=== PATIENT | female | born 1930 | race Caucasian/White ===

== ENCOUNTER 2016-10-11 11:33 | Emergency (ER) | payer MEDICARE ==
[~2016-10-11] VITALS: Ht 167.6 cm; Wt 73.4 kg
[~2016-10-11 11:33] MED LIST: ASPI81 PO; ATOR20TA42 PO; CHOL100010 PO; FISHCAP PO; PREV10CA PO; TAB-TAB PO; WARF-20 PO; WARF5TAB PO
[2016-10-11 12:05] VITALS: BP 122/75; PULSE 92; RESP 16; TEMP 98.5; O2SAT 97
[2016-10-11] MEDS ORDERED: SODIUM CHLORIDE 0.9% FLUSH 5 ML FLUSH IVF PRN (14:00)
--- NOTE | 2016-10-11 14:04 | PD ---
HPI Chief Complaint: Edema Time Seen by Provider: 13:53 Travel History International Travel<30 days: No Contact w/Intl Traveler<30days: No Traveled to known affect area: No History of Present Illness HPI 85-year-old female with history of DVT on warfarin, here for evaluation of pain , swelling, and redness to right distal leg. Symptoms started yesterday. The patient denies trauma. Pain is moderate, constant, worse with movement and palpation. No fevers or chills. No chest pain or dyspnea. PFSH Past Medical History Hx Anticoagulant Therapy: Yes (coumadin) Anxiety: Yes Depression: No Cancer: No Cardiovascular Problems: Yes High Cholesterol: Yes Chest Pain: Yes Congestive Heart Failure: No Cerebrovascular Accident: Yes (cva,) Deep Vein Thrombosis: Yes (HX OF LEFT LEG) Endocrine: No Hypertension: Yes Neurologic: Yes (BRAIN ANEURYSM) Psychiatric: No Respiratory: No Immunizations Current: Yes Renal Failure: Yes (STATES HX OF KIDNEY DISEASE) Thyroid Disease: No ?: Not Menopausal: Yes Past Surgical History Body Medical Devices: CEREBRAL SHUNT Cardiac Surgery: Yes (VALVE REPAIR) Neurologic Surgery: Yes (ANEURYSM REPAIR IN THE BRAIN) Tonsillectomy: Yes Social History Alcohol Use: No Tobacco Use: No Substance Use: No Allergies-Medications (Allergen,Severity, Reaction): Coded Allergies: Bee Sting (Verified Allergy, Severe, Swelling, 10/11/16) Reported Meds & Prescriptions Reported Meds & Active Scripts Active Keflex (Cephalexin) 500 Mg Cap 500 Mg PO Q6H 10 Days Bactrim DS (Sulfamethoxazole-Trimethoprim) 800-160 Mg Tab 1 Tab PO BID Reported Multiple Vitamin 1 Tab 1 Tab PO DAILY Prevagen (Apoaequorin) 10 Mg Cap Fish Oil + D3 (Fish Oil-Cholecalciferol) 1,200-1,000 Mg-Unit Cap 1 Cap PO DAILY Aspirin Children's (Aspirin) 81 Mg Chew 81 Mg CHEW DAILY Warfarin 5 Mg Tab 5 Mg PO DAILY Review of Systems Except as stated in HPI: all other systems reviewed are Neg Physical Exam Narrative GENERAL: Well-developed, well-nourished, comfortable, no acute distress. SKIN: Warm and dry. Right distal/anterior 1/4-1/3 leg with area of warmth and erythema, no red streaks, moderate tenderness, no crepitus, no induration, no blisters. HEAD: Atraumatic. Normocephalic. EYES: Pupils equal and round. No scleral icterus. No injection or drainage. ENT: No nasal bleeding or discharge. Mucous membranes pink and moist. NECK: Trachea midline. No JVD. CARDIOVASCULAR: Regular rate and rhythm. Bilateral dorsalis pedis pulses are brisk and equal. RESPIRATORY: No accessory muscle use. Clear to auscultation. Breath sounds equal bilaterally. MUSCULOSKELETAL: Skin exam as above. Moderate edema to right distal leg. No crepitus. Bilateral calves are supple, nontender. NEUROLOGICAL: Awake and alert. No obvious cranial nerve deficits. Motor grossly within normal limits. Normal speech. PSYCHIATRIC: Appropriate mood and affect; insight and judgment normal. Data Data Last Documented VS Vital Signs Date Time Temp Pulse Resp B/P Pulse Ox O2 Delivery O2 Flow Rate FiO2 10/11/16 14:47 98 Room Air 10/11/16 12:05 98.5 92 16 122/75 Orders Basic Metabolic Panel (Bmp) (10/11/16 14:00) Complete Blood Count With Diff (10/11/16 14:00) Prothrombin Time / Inr (Pt) (10/11/16 14:00) Act Partial Throm Time (Ptt) (10/11/16 14:00) Iv Access Insert/Monitor (10/11/16 14:00) Ecg Monitoring (10/11/16 14:00) Oximetry (10/11/16 14:00) Sodium Chloride 0.9% Flush (Ns Flush) (10/11/16 14:00) Blood Culture (10/11/16 14:00) Us Leg Venous Doppler (10/11/16 ) Tibia/Fibula (Ap/Lat) (10/11/16 ) Sulfamet-Trimeth Ds 800-160 Mg (Bactrim (10/11/16 15:45) Cephalexin (Keflex) (10/11/16 15:45) Labs Laboratory Tests Test 10/11/16 14:15 White Blood Count 8.6 TH/MM3 Red Blood Count 4.10 MIL/MM3 Hemoglobin 11.2 GM/DL Hematocrit 34.9 % Mean Corpuscular Volume 85.0 FL Mean Corpuscular Hemoglobin 27.3 PG Mean Corpuscular Hemoglobin 32.1 % Concent Red Cell Distribution Width 16.1 % Platelet Count 203 TH/MM3 Mean Platelet Volume 7.9 FL Neutrophils (%) (Auto) 80.9 % Lymphocytes (%) (Auto) 14.2 % Monocytes (%) (Auto) 3.4 % Eosinophils (%) (Auto) 1.2 % Basophils (%) (Auto) 0.3 % Neutrophils # (Auto) 7.0 TH/MM3 Lymphocytes # (Auto) 1.2 TH/MM3 Monocytes # (Auto) 0.3 TH/MM3 Eosinophils # (Auto) 0.1 TH/MM3 Basophils # (Auto) 0.0 TH/MM3 CBC Comment DIFF FINAL Differential Comment Prothrombin Time 16.9 SEC Prothromb Time International 1.5 RATIO Ratio Activated Partial 31.3 SEC Thromboplast Time Sodium Level 142 MEQ/L Potassium Level 4.4 MEQ/L Chloride Level 108 MEQ/L Carbon Dioxide Level 25.7 MEQ/L Anion Gap 8 MEQ/L Blood Urea Nitrogen 16 MG/DL Creatinine 1.00 MG/DL Estimat Glomerular Filtration 53 ML/MIN Rate Random Glucose 90 MG/DL Calcium Level 8.4 MG/DL [facility] Medical Decision Making Medical Screen Exam Complete: Yes Emergency Medical Condition: Yes Differential Diagnosis Cellulitis, DVT, necrotizing fasciitis unlikely Narrative Course Vital signs show heart rate 92, blood pressure 122/75, pulse ox 97% on room air , oral temp of 98.5F. CBC shows WBC 8.6, hemoglobin 11.2, hematocrit 34.9, platelets 203, neutrophils 80.9%. BMP is unremarkable. INR is 1.5. Right tib-fib x-ray shows no evidence of fracture, no free air seen by me. Right lower extremity venous duplex is negative for DVT. Patient was made aware of all findings. She is resting comfortably. At this point I believe she is stable for discharge home with oral antibiotics. She is from [place] and has no local PMD. She will return to the emergency Department in 2 days for a wound check. A line was drawn over the superior border of area of erythema. Patient was informed on when to return to the emergency Department sooner. The patient was also instructed to double her dose of Coumadin for the next 2 days. She verbalizes understanding and agreement with plan. Diagnosis Primary Impression: Cellulitis of right leg Additional Impression: Subtherapeutic international normalized ratio (INR) Referrals: Primary Care Physician 2 days Additional Instructions: Return to the Emergency Department in 2 days for a wound check. Take antibiotics as prescribed. Return to the Emergency Department sooner for worsening symptoms or any other concerns as discussed. Scripts Cephalexin (Keflex)500 Mg [id number] Mg PO Q6H 10 Days Ref 0 Prov:John Nichols MD 10/11/16 Sulfamethoxazole-Trimethoprim (Bactrim DS)800-160 Mg Tab1 Tab PO BID #20 TAB Ref 0 Prov:John Nichols MD 10/11/16 Disposition: 01 DISCHARGE HOME Condition: Stable John Nichols MD Oct 11, 2016 14:04
[2016-10-11] MEDS ORDERED: ASPI81CH7 CHEW (14:09)
[2016-10-11] MEDS ORDERED: PREV10CA (14:09)
[2016-10-11] MEDS ORDERED: FISHCAP4 PO (14:09)
[2016-10-11] MEDS ORDERED: WARF-23 PO (14:09)
[2016-10-11] MEDS ORDERED: MULTTAB67 PO (14:09)
[2016-10-11 14:47] VITALS: O2SAT 98
[2016-10-11 14:51] LABS: BASOPHIL % 0.3 % (0.0-2.0); EOSINOPHIL # 0.1 TH/MM3 (0-0.4); EOSINOPHIL % 1.2 % (0.0-4.0); HEMATOCRIT 34.9 % (35.0-46.0); HEMO FLAGS DIFF FINAL; LYMPH % 14.2 % (9.0-44.0); LYMPHOCYTE # 1.2 TH/MM3 (1.0-4.8); MEAN CORPUSCULAR HEMOGLOBIN 27.3 PG (27.0-34.0); MEAN CORPUSCULAR HGB CONC 32.1 % (32.0-36.0); MONO % 3.4 % (0.0-8.0); NEUT % 80.9 % (16.0-70.0); PLATELET COUNT 203 TH/MM3 (150-450); RED CELL DISTRIBUTION WIDTH 16.1 % (11.6-17.2); WHITE BLOOD COUNT 8.6 TH/MM3 (4.0-11.0)
[2016-10-11 14:59] LABS: POTASSIUM 4.4 MEQ/L (3.5-5.1)
[2016-10-11 15:02] LABS: BICARBONATE 25.7 MEQ/L (21.0-32.0)
[2016-10-11 15:03] LABS: APTT (PATIENT) 31.3 SEC (24.3-30.1); INTERNATIONAL NORMALIZED RATIO 1.5 RATIO; PROTHROMBIN TIME - PATIENT 16.9 SEC (9.8-11.6)
--- NOTE | 2016-10-11 15:22 | RADHPO ---
EXAM DATE/TIME: 10/11/2016 14:40 [facility] COMPARISON: No previous studies available for comparison. INDICATIONS : Pain and swelling mid tibia. MEDICAL HISTORY : None. SURGICAL HISTORY : None. ENCOUNTER: Initial ACUITY: 3 days PAIN SCORE: 5/10 LOCATION: Right lateral FINDINGS: 2 views of the right tibia and fibula. Bone alignment within normal limits. No evidence of fracture. No focal bone erosion. CONCLUSION: No evidence of fracture. Nicholas Kumari MD on October 11, 2016 at 15:20 Board Certified Radiologist. This report was verified electronically.
--- NOTE | 2016-10-11 15:42 | RADHPO ---
EXAM DATE/TIME: 10/11/2016 15:06 [facility] COMPARISON: No previous studies available for comparison. INDICATIONS : Right leg swelling. MEDICAL HISTORY : Hypercholesterolemia. Hypertension. Deep vein thrombosis. CVA. Kidney disease. SURGICAL HISTORY : Aneurysm repair in the brain. ENCOUNTER: Initial ACUITY: 2 day PAIN SCORE: 4/10 LOCATION: Right leg. TECHNIQUE: Venous ultrasound of the leg was performed from the inguinal ligament to the proximal calf. Real-augustus e, color Doppler and spectral tracing, compression and augmentation techniques were used. FINDINGS: There is normal compressibility of the deep venous system from the inguinal region to the proximal ca lf. No echogenic clot is seen in the lumen of the common femoral, femoral, popliteal, and posterior tibial veins. There is a normal response of the venous system to proximal and distal augmentation an d respiration. CONCLUSION: Normal examination. Rahul Melendez MD on October 11, 2016 at 15:40 Board Certified Radiologist. This report was verified electronically.
[2016-10-11] MEDS ORDERED: BACT800T5 PO (15:45)
[2016-10-11] MEDS ORDERED: CEPH-460 PO ×2 (15:45→15:46)
[2016-10-11] MEDS ORDERED: CEPHALEXIN MONOHYDRATE 500 MG CAP PO ONE (15:45)
[2016-10-11] MEDS ORDERED: SULFAMETHOXAZOLE-TRIMETHOPRIM DS 800-160 MG TAB PO ONE (15:45)
== END 2016-10-11 16:42 | disposition home or self-care (01) ==
LOC: PHED 11:33
DX: L03.115 Cellulitis of right lower limb (principal); Z79.01 Long term (current) use of anticoagulants
CPT/HCPCS: 73590; 80048; 85025; 85610; 85730; 87040; 93971

== ENCOUNTER 2016-10-13 09:02 | Emergency (ER) | payer MEDICARE ==
[~2016-10-13] VITALS: Ht 167.6 cm; Wt 72.3 kg
[~2016-10-13 09:02] MED LIST changes: -ASPI81 PO; +ASPI81CH7 CHEW; -ATOR20TA42 PO; +BACT800T5 PO; +CEPH-460 PO; -CHOL100010 PO; -FISHCAP PO; +FISHCAP4 PO; +MULTTAB67 PO; +PREV10CA; -PREV10CA PO; -TAB-TAB PO; -WARF-20 PO; +WARF-23 PO; -WARF5TAB PO
[2016-10-13 09:13] VITALS: BP 106/77; PULSE 94; RESP 18; TEMP 98.2; O2SAT 97
--- NOTE | 2016-10-13 09:26 | PD ---
HPI Chief Complaint: Wound/Suture/Staple Re-Check Time Seen by Provider: 09:19 Travel History International Travel<30 days: No Contact w/Intl Traveler<30days: No Traveled to known affect area: No History of Present Illness HPI This 85-year-old female presents for a reevaluation of cellulitis of her leg. She was here on the and was started on Keflex and Bactrim. The area of cellulitis was marked with pen. He reports that the area of redness has subsided and she is feeling well. She is not aware of any fever. She has previously had cellulitis and was hospitalized. PFSH Past Medical History Hx Anticoagulant Therapy: Yes (coumadin) Anxiety: Yes Depression: No Cancer: No Cardiovascular Problems: Yes High Cholesterol: Yes Chest Pain: Yes Congestive Heart Failure: No Cerebrovascular Accident: Yes (cva,) Deep Vein Thrombosis: Yes (HX OF LEFT LEG) Endocrine: No Gastrointestinal Disorders: No Hypertension: Yes Neurologic: Yes (BRAIN ANEURYSM) Psychiatric: No Respiratory: No Immunizations Current: Yes Renal Failure: Yes (STATES HX OF KIDNEY DISEASE) Thyroid Disease: No Menopausal: Yes Past Surgical History Body Medical Devices: CEREBRAL SHUNT Cardiac Surgery: Yes (VALVE REPAIR) Neurologic Surgery: Yes (ANEURYSM REPAIR IN THE BRAIN/SHUNT ) Tonsillectomy: Yes Social History Alcohol Use: No Tobacco Use: No Substance Use: No Allergies-Medications (Allergen,Severity, Reaction): Coded Allergies: Bee Sting (Verified Allergy, Severe, Swelling, 10/11/16) Reported Meds & Prescriptions Reported Meds & Active Scripts Active Keflex (Cephalexin) 500 Mg Cap 500 Mg PO Q6H 10 Days Bactrim DS (Sulfamethoxazole-Trimethoprim) 800-160 Mg Tab 1 Tab PO BID Reported Multiple Vitamin 1 Tab 1 Tab PO DAILY Prevagen (Apoaequorin) 10 Mg Cap Fish Oil + D3 (Fish Oil-Cholecalciferol) 1,200-1,000 Mg-Unit Cap 1 Cap PO DAILY Aspirin Children's (Aspirin) 81 Mg Chew 81 Mg CHEW DAILY Warfarin 5 Mg Tab 5 Mg PO DAILY Review of Systems General / Constitutional: No: Fever, Chills Cardiovascular: No: Chest Pain or Discomfort Respiratory: No: Cough, Shortness of Breath Gastrointestinal: No: Vomiting, Diarrhea Skin: Positive Rash Psychiatric: No: Anxiety Physical Exam Narrative Patient is here for recheck and the examination was confined to the right leg. The patient does not appear in distress. There is faint erythema on the medial aspect of the right leg which does not extend to the area that has been marked. Patient reports that the redness is much better than before and the nurse corroborates this history seen the patient on the previous visit. There is no lymphangitis Data Data Last Documented VS Vital Signs Date Time Temp Pulse Resp B/P Pulse Ox O2 Delivery O2 Flow Rate FiO2 10/13/16 09:13 98.2 94 18 106/77 97 Room Air MDM Medical Decision Making Medical Screen Exam Complete: Yes Emergency Medical Condition: Yes Medical Record Reviewed: Yes Differential Diagnosis Differential includes cellulitis, cellulitis responding to treatment Narrative Course Patient is responding to treatment well. She'll be released with recommendations to return if the cellulitis she get worse Diagnosis Primary Impression: cellulitis right leg improving Disposition: 01 DISCHARGE HOME Condition: Stable Ivan Guallpa MD Oct 13, 2016 09:26
== END 2016-10-13 09:39 | disposition home or self-care (01) ==
LOC: PHED 09:02
DX: L03.115 Cellulitis of right lower limb (principal); E78.00 Pure hypercholesterolemia, unspecified; Z79.01 Long term (current) use of anticoagulants; Z86.59 Personal history of other mental and behavioral disorders; Z86.79 Personal history of other diseases of the circulatory system; Z86.73 Personal history of transient ischemic attack (TIA), and cerebral infarction without residual deficits; Z86.718 Personal history of other venous thrombosis and embolism; Z86.69 Personal history of other diseases of the nervous system and sense organs; Z87.448 Personal history of other diseases of urinary system
CPT/HCPCS: 99281